=== PATIENT | male | born 1985 | race Caucasian/White ===

== ENCOUNTER 2021-09-04 15:12 | Emergency (ER) | payer OTHER, MEDICAID ==
[~2021-09-04] VITALS: Ht 175.3 cm; Wt 100.0 kg
[2021-09-04] MEDS ORDERED: BACITRACIN ZINC OINT UDPKT TOP ONE (16:30)
[2021-09-04] MEDS ORDERED: SILVER SULFADIAZINE 1% CREAM 25GM TOP ONE (16:45)
[2021-09-04] MEDS ORDERED: IBUPROFEN 600MG TABLET PO ONE (16:45)
[2021-09-04] MEDS ORDERED: IBUP-2029 MT (16:53)
[2021-09-04] MEDS ORDERED: SILV50CR31 TP (17:08)
[2021-09-04 17:18] VITALS: BP 142/82
== END 2021-09-04 17:19 | disposition home or self-care (01) ==
LOC: ER 15:22
DX: T22.111A Burn of first degree of right forearm, initial encounter (principal); X10.2XXA Contact with fats and cooking oils, initial encounter; Y93.89 Activity, other specified; Y92.010 Kitchen of single-family (private) house as the place of occurrence of the external cause
CPT/HCPCS: 99284

== ENCOUNTER 2022-09-11 01:13 | Emergency (ER) | payer MEDICAID, OTHER ==
[~2022-09-11] VITALS: Ht 175.3 cm; Wt 92.0 kg
[~2022-09-11 01:13] MED LIST: IBUP-2029 MT; SILV50CR31 TP
[2022-09-11 02:15] VITALS: BP 136/91; O2SAT 100
[2022-09-11] MEDS ORDERED: CEFTRIAXONE SODIUM 500 MG/VIAL IM ONE (02:45)
[2022-09-11] MEDS ORDERED: AZITHROMYCIN 500 MG TABLET PO ONE (02:45)
[2022-09-11 03:53] LABS: CLARITY URINE CLEAR (CLEAR); COLOR URINE YELLOW (YELLOW); KETONES URINE TRACE (NEGATIVE); LEUKOCYTE ESTERASE URINE 2+ (NEGATIVE); NITRITE URINE NEGATIVE (NEGATIVE); OCCULT BLOOD URINE NEGATIVE (NEGATIVE); PROTEIN URINE TRACE (NEGATIVE); SPECIFIC GRAVITY URINE 1.026 (1.005-1.030)
[2022-09-11 04:06] VITALS: PULSE 100; RESP 18; TEMP 98.6
== END 2022-09-11 04:07 | disposition home or self-care (01) ==
LOC: ER 01:13
DX: A64 Unspecified sexually transmitted disease (principal)
CPT/HCPCS: 87491; 87591; 81003; 87086; 96372; 99283; J0696; Z7610 ×2

== ENCOUNTER 2024-01-26 00:23 | Emergency (ER) | payer OTHER ==
[~2024-01-26] VITALS: Ht 175.3 cm; Wt 97.0 kg
[2024-01-26 00:24] VITALS: O2SAT 98
[2024-01-26 00:44] VITALS: BP 144/98; PULSE 105; RESP 18; TEMP 98.5; O2SAT 100
[2024-01-26] MEDS ORDERED: CEPH500C2 MT (04:31)
[2024-01-26] MEDS ORDERED: BO1 TP (04:31)
== END 2024-01-26 05:11 | disposition home or self-care (01) ==
LOC: ER 00:23
DX: L97.519 Non-pressure chronic ulcer of other part of right foot with unspecified severity (principal); Z79.899 Other long term (current) drug therapy
CPT/HCPCS: 99283